=== PATIENT | male | born 2000 ===

== ENCOUNTER 2021-10-11 22:12 | Emergency (ER) | payer SELFPAY ==
[2021-10-11] MEDS ORDERED: Fentanyl 100 MCG/2 ML VIAL ONE (22:36)
[2021-10-11] MEDS ORDERED: Boostrix 0.5 ML (Tdap) VIAL ONE (23:46)
== END 2021-10-12 00:12 | disposition home or self-care (01) ==
LOC: ERS 22:12
DX: S93.402A Sprain of unspecified ligament of left ankle, initial encounter (principal); Z23 Encounter for immunization; W17.89XA Other fall from one level to another, initial encounter
CPT/HCPCS: 90471; 90715; 96372; J3010